=== PATIENT | male | born 1970 | race Caucasian/White ===

== ENCOUNTER 2017-07-26 20:28 | Emergency (ER) | payer BC ==
[2017-07-26 20:37] VITALS: BP 150/93; PULSE 91; TEMP 98.3; BMI 28.1
[2017-07-26] MEDS ORDERED: SULFAMETHOXAZOLE/TRIMETHOPRIM 800MG/160MG D.S. TABLET PO ONE (21:01)
--- NOTE | 2017-07-26 21:01 | PDOC ---
History of Present Illness - General History Source: Patient Exam Limitations: No Limitations - History of Present Illness Initial Comments: 07/26/17 21:07 The patient is a 47 year old male, with no significant past medical history, who presents to the emergency department with, three days of an left calf infected ingrown hair. As per patient, he got an ingrown hair on his left leg three days ago which progressively worsened. He reports pain and redness associated with his ingrown hair. He reports taking Motrin, without relief. He denies any recent fevers, chills, headache or dizziness. He denies any recent nausea, vomit, diarrhea or constipation. He denies any recent chest pain or shortness of breath. He denies any recent dysuria, frequency, urgency or hematuria. PAST MEDICAL HISTORY: no significant history PAST SURGICAL HISTORY: no significant history FAMILY HISTORY: no pertinent history SOCIAL HISTORY: Pt lives with family and is employed. MEDICATIONS: reviewed ALLERGIES: As per nursing notes ROS: General: No fevers or chills, no weakness, no weight loss HEENT: No change in vision. No sore throat,. No ear pain CardioVascular: No chest pain or shortness of breath Respiratory:No cough, or wheezing. Gastrointestinal: no nausea, vomiting, diarrhea or constipation, No rectal bleeding Genitourinary: No dysuria, hematuria, or frequency Musculoskeletal: No joint or muscle pain or swelling Neurologic: No headache, vertigo, dizziness or loss of consciousness Psychiatric: nor depression Skin: +Infected ingrown hair on leg calf. No easy bruising Endocrine: no increased thirst or abnormal weight change Allergic: no skin or latex allergy All other systems reviewed and normal Physical Exam: GENERAL: The patient is awake, alert, and fully oriented, in no acute distress. HEAD: Normal with no signs of trauma. EYES: Pupils equal, round and reactive to light, extraocular movements intact, sclera anicteric, conjunctiva clear. EXTREMITIES: Normal range of motion, no edema. NEUROLOGICAL: Normal speech, normal gait. PSYCH: Normal mood, normal affect. SKIN: +Left anterior sahu small area of erythema with associated induration and tenderness on palpation, without discharge. Warm, Dry, normal turgor. <Evelina Reese - Last Filed: 07/26/17 21:07> - General History Source: Patient Exam Limitations: No Limitations - History of Present Illness Initial Comments: A portion of this note was documented by scribe services under my direction. I have reviewed the details of the note, within reason, and agree with the documentation. The case summary and management plan written by me. 07/26/17 21:09 Assessment and plan: This is a 47 y/o male comes in complaining of pain and infection of his anterior sahu of his left lower leg. Patient had a small abscess in the area which I attempted to drain but minimal fluid was drained as it was primarily still indurated but not fluctuant. Patient discharged told to do hot soaks 3 times a day and to follow-up with his doctor in 2 days if not better. Patient given note for no work tomorrow <Jericho Schulz I - Last Filed: 07/26/17 21:10> - General Chief Complaint: Pain, Acute Stated Complaint: LEFT LEG INFECTION Time Seen by Provider: 07/26/17 20:38 Past History <Evelina Reese - Last Filed: 07/26/17 21:07> - Past Medical History COPD: No Other medical history: DENIES - Immunization History Td Vaccination: Yes Immunization Up to Date: Yes - Suicide/Smoking/Psychosocial Hx Smoking Status: No Smoking History: Never smoked Years of Tobacco Use: 0 Have you smoked in the past 12 months: No Number of Cigarettes Smoked Daily: 0 Cigars Per Day: 0 Information on smoking cessation initiated: No Hx Alcohol Use: No Drug/Substance Use Hx: No Substance Use Type: None <Jericho Schulz I - Last Filed: 07/26/17 21:10> - Past Medical History Allergies/Adverse Reactions: Allergies Allergy/AdvReac Type Severity Reaction Status Date / Time No Known Allergies Allergy Verified 07/26/17 20:30 Home Medications: Ambulatory Orders No Home Medications 0 dose .ROUTE UTDICT 03/24/13 Ibuprofen [Motrin -] 600 mg PO TID #21 tablet 01/09/16 Sulfamethoxazole/Trimethoprim [Bactrim DS -] 1 tab PO BID #14 tablet 07/26/17 *Physical Exam - Vital Signs Last Vital Signs Temp Pulse Resp BP Pulse Ox 98.3 F 91 H 16 150/93 96 07/26/17 20:32 07/26/17 20:32 07/26/17 20:32 07/26/17 20:32 07/26/17 20:32 <Evelina Reese - Last Filed: 07/26/17 21:07> - Vital Signs Last Vital Signs Temp Pulse Resp BP Pulse Ox 98.3 F 91 H 16 150/93 96 07/26/17 20:32 07/26/17 20:32 07/26/17 20:32 07/26/17 20:32 07/26/17 20:32 <Jericho Schulz I - Last Filed: 07/26/17 21:10> *DC/Admit/Observation/Transfer - Attestations Scribe Attestion: 07/26/17 21:08 Documentation prepared by Evelina Reese, acting as clinical medical transcriptionist for Jericho Schulz MD. <Evelina Reese - Last Filed: 07/26/17 21:07> - Discharge Dispostion Admit: No <Jericho Schulz I - Last Filed: 07/26/17 21:10> Diagnosis at time of Disposition: Cellulitis of left leg - Discharge Dispostion Disposition: HOME Condition at time of disposition: Stable - Prescriptions Prescriptions: Sulfamethoxazole/Trimethoprim [Bactrim DS -] 1 tab PO BID #14 tablet - Patient Instructions Additional Instructions: For the pain you can take Aleve or Tylenol as directed on the bottle. In addition to that for the infection take Bactrim 1 tablet twice a day for 7 days Start amoxicillin soaks as discussed by the doctor do the hot soaks 3-4 times a day for the next 2-3 days You should be better in 48 hours if you aren't follow-up with your doctor Return to the emergency department immediately with ANY new, persistent or worsening symptoms. Continue any medications as previously prescribed by your physician. You should follow up with your primary doctor as soon as possible regarding today's emergency department visit. . Please make sure your doctor reviews the results of your emergency evaluation. Thank you for coming to the Emergency Department today for your care. It was a pleasure to see you today. Please note that your evaluation is INCOMPLETE until you follow-up with your doctor. - Post Discharge Activity Forms/Work/School Notes: Back to Work
== END 2017-07-26 21:08 | disposition home or self-care (01) ==
LOC: FER 20:28
DX: L03.116 Cellulitis of left lower limb (principal)
CPT/HCPCS: 87070; 87186; 87205; 99281-25